=== PATIENT | male | born 1995 | race Caucasian/White ===

== ENCOUNTER 2019-05-01 10:23 | Emergency (ER) | payer SELFPAY ==
--- NOTE | 2019-05-01 10:54 | ER Document Report ---
ED Medical Screen (RME) - General Chief Complaint: Psych Problem Stated Complaint: numbness Time Seen by Provider: 05/01/19 10:42 TRAVEL OUTSIDE OF THE [place] IN LAST 30 DAYS: No - HPI Notes: 05/01/19 10:52 24-year-old male to the emergency department with complaints of numbness all over. He states that this is been ongoing since 2017. He states usually it happens in just his hands and around his mouth and his face. However last night he experienced it in his feet as well. He states that he sometimes will also have seizures when he gets numb like this. He states that he has not had 1 in the past 2 weeks. He states that he is never been evaluated for seizure-like activity. He denies chest pain, shortness of breath. Admits to occasional headaches and occasional diarrhea. He also states that he just recently moved here from [facility]. He states that he has been struggling with some depression. He states that he has fleeting and intermittent suicidal ideation without plan. He states he last had suicidal ideation about a week ago. He denies any HI. He admits to some vague hallucinations which he describes as dj vu. He has a history of ADD and used to be on a stimulant but is not on any current psychotropic medicines. He is to use marijuana but states he does not use any drugs currently and he does not drink alcohol. Performed a brief medical screening exam on the patient determined that he will need further evaluation and management by main side provider. I placed initial orders to help expedite his care. - Related Data Allergies/Adverse Reactions: No Known Allergies Allergy (Verified 05/01/19 10:42) Past Medical History - Social History Chew tobacco use (# tins/day): No Frequency of alcohol use: None Drug Abuse: None Physical Exam - Vital signs Vitals: Temp Pulse Resp BP Pulse Ox 98.0 F 70 14 115/74 100 05/01/19 10:05/01/19 10:05/01/19 10:05/01/19 10:05/01/19 10:26 Course - Vital Signs Vital signs: Temp Pulse Resp BP Pulse Ox 98.0 F 70 14 115/74 100 05/01/19 10:05/01/19 10:05/01/19 10:05/01/19 10:05/01/19 10:26
[2019-05-01 11:36] LABS: ABSOLUTE BASOPHILS # (AUTO) 0.1 10^3/uL (0.0-0.2); ABSOLUTE EOSINOPHILS # (AUTO) 0.2 10^3/uL (0.0-0.6); ABSOLUTE LYMPHOCYTES (AUTO) 0.9 10^3/uL (0.5-4.7); ABSOLUTE MONOCYTES (AUTO) 0.6 10^3/uL (0.1-1.4); ABSOLUTE NEUT (AUTO) 6.7 10^3/uL (1.7-8.2); BASOPHILS % (AUTO) 1.4 % (0-2); HEMOGLOBIN 15.6 g/dL (13.5-17.0); LYMPHOCYTES % (AUTO) 10.2 % (13-45); MEAN CORPUSCULAR HEMOGLOBIN 32.8 pg (27.0-33.4); MEAN CORPUSCULAR HGB CONC 35.5 g/dL (32.0-36.0); MEAN CORPUSCULAR VOLUME 93 fl (80-97); MONOCYTES % (AUTO) 6.6 % (3-13); PLATELET COUNT 256 10^3/uL (150-450); RED BLOOD COUNT 4.76 10^6/uL (4.35-5.55); RED CELL DISTRIBUTION WIDTH 12.3 % (11.5-14.0); SEGMENTED NEUTROPHILS % (AUTO) 79.8 % (42-78); TOTAL CELLS COUNTED % (AUTO) 100 %; WHITE BLOOD COUNT 8.4 10^3/uL (4.0-10.5)
[2019-05-01 11:38] LABS: APPEARANCE,URINE SLIGHTLY-CLOUDY; BILIRUBIN,URINE NEGATIVE (NEGATIVE); COLOR,URINE YELLOW; GLUCOSE, URINE NEGATIVE (NEGATIVE); KETONES,URINE NEGATIVE (NEGATIVE); LEUKOCYTE ESTERASE,URINE NEGATIVE (NEGATIVE); NITRITE,URINE NEGATIVE (NEGATIVE); PROTEIN,URINE NEGATIVE (NEGATIVE); URINE SPECIFIC GRAVITY 1.015; UROBILINOGEN,URINE NEGATIVE mg/dL (<2.0)
[2019-05-01 11:44] LABS: ALBUMIN 4.6 g/dL (3.5-5.0); ALKALINE PHOSPHATASE 63 U/L (38-126); ANION GAP 10 (5-19); ASPARTATE AMINO TRANSFERASE 29 U/L (17-59); BLOOD UREA NITROGEN 12 mg/dL (7-20); CARBON DIOXIDE 30 mmol/L (22-30); CHLORIDE 102 mmol/L (98-107); GLUCOSE 70 mg/dL (75-110); POTASSIUM 3.8 mmol/L (3.6-5.0); TOTAL PROTEIN 7.4 g/dL (6.3-8.2)
[2019-05-01 11:45] LABS: ALCOHOL < 10 mg/dL (NONE DETECTED)
[2019-05-01 11:51] LABS: URINE AMPHETAMINES SCREEN NEGATIVE; URINE BARBITURATES SCREEN NEGATIVE; URINE BENZODIAZEPINES SCREEN NEGATIVE; URINE COCAINE SCREEN NEGATIVE; URINE METHADONE SCREEN NEGATIVE; URINE PHENCYCLIDINE SCREEN NEGATIVE
[2019-05-01 11:53] LABS: URINE MARIJUANA (THC) SCREEN UNCONFIRMED POSITIVE
--- NOTE | 2019-05-01 13:18 | PSYCHOLOGICAL NOTE ---
Psych Note - Psych Note Date seen by psych provider: 05/01/19 Time seen by psych provider: 12:27 - Initial evaluation Psych Note: Presenting Problem: Patient presented to the ED today for self diagnosis of seizure disorder since 2016 with description of numb extremities, fleeting and intermittent SI, hallucinations described as Abbi Vu, new to [place] from [facility] (moved in Dec 2018 to live with from from [facility] who has since returned to [facility]), with history of ADHD/ADD. No information found on patient in [place] controlled substance data base. He identified stress related to roommates moved out so concerns with finances and making ends meet, as well as his father having heart surgery [facility] in [place]. He reported "I'm tired physically." He denied current SI. stated it comes and goes, no plan, he would never do anything and denied history of attempts. He denied being on current medications and stated he has a history of ADHD/ADD where he was prescribed something he cannot recall when he was in middle school. he stated "it helped a little bit at first, when I got off it I was angry so they put me back on it, then I couldn't tell any difference so stopped it." He denied previous hospitalizations. He acknowledged his mother has history of depression, anxiety, Bipolar and ADHD/ADD. He stated he has never been diagnosed with seizure disorder and has never had medication for it. He said he does not have insurance and is not linked to any providers (medical or ). he stated he was interested in medication recommendations and linkage. Patient had fair eye contact, carried on dialogue conversation and was engaged thus did not appear to be responding to internal stimuli. he stated when he is at home his overall body can be room temperature but his hands and feet are like icicles. This was relayed to the medical doctor. Diagnosis: Passive Suicidal Ideation Sleepy/Fatigue Psychosocial stress (roommates moved out, finances on own now, father having heart surgery today in [place]) Medication recommendation made by the psychiatric medication provider, Dr. Bouchra MD., includes: Provide prescription for Depakote ER 250MG PO twice a day for possible seizures/mood stabilization Impression/Plan: Patient is cleared from acute psychiatric services. He denied current SI/HI, said when he does have SI it comes and goes/no plan/would never do anything/denied previous attempts and had fair eye contact/engaged in evaluation with dialogue conversation therefor did not appear to be responding to internal stimuli. He identified psychosocial stress (roommates moved out, finances all on his own now, father having heart surgery today in [place]). he stated he was interest in medication recommendations and linkages to local providers. Patient provided outpatient MH resource sheet which highlighted both MCM numbers, Port and IFS with documented walk in times and listed [facility] for medical needs. Consulted with Dr. Guo regarding the management and care of patient. ED Physician in agreement with recommendations.
--- NOTE | 2019-05-01 14:24 | ER Document Report ---
ED Psych Disorder / Suicide <NIXON JUNIOR - Last Filed: 05/01/19 14:31> - General TRAVEL OUTSIDE OF THE U.S. IN LAST 30 DAYS: No <LAZARA JENNINGSHANJOE Miller - Last Filed: 05/03/19 10:46> - General Chief Complaint: Psych Problem Stated Complaint: numbness Time Seen by Provider: 05/01/19 10:42 Primary Care Provider: [facility] [Provider Group] - Follow up as needed [facility] [Outside] - Follow up as needed Notes: Patient is a 24-year-old male who presents to the emergency department with a chief complaint of arm numbness, face numbness, and numbness pretty much all over. Patient has had this problem for the past 3 years, but has never seen a primary care provider for this. Patient ended up feeling the same symptoms in his feet. Patient has a he states that he will sometimes have seizures. Patient has moved here to [place] from [place] this December. Patient admits to some depression. He admitted earlier to suicidal ideation, but denies homicidal Alexey ideation during my assessment. Patient denies homicidal ideation. Patient is not currently on any medications at this time. He has a history of ADHD. Patient admits to smoking marijuana in [place] a couple weeks ago. (BERNICE JENNINGS) - Related Data Allergies/Adverse Reactions: No Known Allergies Allergy (Verified 05/01/19 10:42) Past Medical History - General Information source: Patient - Social History Smoking Status: Never Smoker Chew tobacco use (# tins/day): No Frequency of alcohol use: None Drug Abuse: None Family History: Reviewed & Not Pertinent Patient has suicidal ideation: No Patient has homicidal ideation: No Psychiatric Medical History: Reports: Hx Attention Deficit Hyperactivity Disorder <BERNICE JENNINGS - Last Filed: 05/03/19 10:46> Review of Systems <BERNICE JENNINGS - Last Filed: 05/03/19 10:46> - Review of Systems Notes: REVIEW OF SYSTEMS: CONSTITUTIONAL : Denies recent illness. Denies recent unintentional weight loss. Denies fever, chills, or sweats. EENT: Denies eye, ear, throat, or mouth pain, discharge, or symptoms. See HPI. CARDIOVASCULAR: Denies chest pain. RESPIRATORY: Denies shortness of breath, cough, congestion, difficulty breathing, or wheezing. GASTROINTESTINAL: Denies nausea, vomiting, and diarrhea. Denies abdominal pain. Denies constipation. GENITOURINARY: Denies difficulty urinating, burning, blood in urine, urgency or frequency. MUSCULOSKELETAL: Denies neck and back pain. Denies joint pain or swelling. SKIN: Denies rash, itchiness, or lesions HEMATOLOGIC : Denies easy bruising or bleeding. LYMPHATIC: Denies swollen, painful, enlarged glands. NEUROLOGICAL: Denies no numbness or tingling denies weakness. Denies headache. Denies altered mental status. Denies alteration in speech. PSYCHIATRIC: See HPI. All other systems reviewed and negative. (BERNICE JENNINGS) Physical Exam <BERNICE JENNINGS - Last Filed: 05/03/19 10:46> - Vital signs Vitals: Temp Pulse Resp BP Pulse Ox 98.0 F 70 14 115/74 100 05/01/19 10:26 05/01/19 10:26 05/01/19 10:26 05/01/19 10:26 05/01/19 10:26 - Notes Notes: PHYSICAL EXAMINATION: GENERAL: Appears well, healthy, well-nourished, no acute distress. HEAD: Normocephalic, atraumatic. EYES: PERRL, conjunctiva normal, all extraocular movements intact, sclera nonicteric ENT: Moist mucous membranes. Edema and erythema noted to nasal mucosa. NECK: Supple, no noticeable swelling, redness, rash. Normal range of motion. LUNGS: Equal breath sounds bilaterally and clear to auscultation. No wheezes rales or rhonchi. CARDIOVASCULAR: S1-S2, regular rate, regular rhythm. Radial pulses 2+, normal. ABDOMEN: Normoactive bowel sounds. Soft, nontender, no guarding, no rebound tenderness, and no masses palpated. EXTREMITIES: Normal strength and range of motion, no pitting or edema. No cyanosis. NEUROLOGICAL: Moves all extremities upon command. Strength 5/5 in all extremities. PSYCH: Normal mood, normal affect. SKIN: Warm, dry. No rash, lesions, ulcerations noted. Normal skin turgor. (BERNICE JENNINGS) Course - Laboratory Result Diagrams: 05/01/19 11:00 05/01/19 11:00 <NIXON JUNIOR - Last Filed: 05/01/19 14:31> - Laboratory Result Diagrams: 05/01/19 11:00 05/01/19 11:00 <BERNICE JENNINGS - Last Filed: 05/03/19 10:46> - Re-evaluation Re-evalutation: 05/01/19 14:54 Hematology does not show leukocytosis, but there is a left shift. Chemistries show glucose of 70, but the patient was fed and eating well. Urinalysis is unremarkable. Urine toxicology shows marijuana. Serum alcohol is negative. Mental [facility] has evaluated the patient and the patient will be placed on Depakote 250 mg p.o. twice daily. Patient also states that he has a runny nose that started yesterday. He will be started on cetirizine and Flonase. He will follow-up with [facility]. He will also follow-up with the mental health clinic. Patient denies any suicidal or homicidal ideation. He is medically clear and psychologically cleared for home. Follow-up precautions were given. Verbal discharge instructions were given to the patient. They verbalized understanding. They are stable for discharge. (BERNICE JENNINGS) - Vital Signs Vital signs: Temp Pulse Resp BP Pulse Ox 97.8 F 81 15 106/53 L 100 05/01/19 15:28 05/01/19 15:28 05/01/19 15:28 05/01/19 15:28 05/01/19 15:28 - Laboratory Laboratory results interpreted by me: 05/01/19 05/01/19 05/01/19 11:00 11:00 11:00 Lymph % (Auto) 10.2 L Seg Neutrophils % 79.8 H Glucose 70 L Urine Ascorbic Acid 40 H Discharge <NIXON JUNIOR - Last Filed: 05/01/19 14:31> <BERNICE JENNINGS - Last Filed: 05/03/19 10:46> - Discharge Clinical Impression: Rhinorrhea, Suicidal ideation Depression Qualifiers: Depression Type: unspecified Qualified Code(s): F32.9 - Major depressive disorder, single episode, unspecified Condition: Stable Disposition: HOME, SELF-CARE Additional Instructions: Please start cetirizine and Flonase to help with your runny nose and congestion. Follow up with [facility] as needed for regular care. You have been evaluated by both medical and behavioral health teams for passive suicidal ideation and have been deemed appropriate for discharge. Medication recommendations have been provided. You have been prescribed Depakote ER 250MG to be taken twice a day. While in the emergency department you received the following services: Medical screening and assessment, nursing services, dietary services, pharmacological services, one-on-one counseling and/or psychotherapy, and environmental services. You have been provided with a outpatient mental health resource list which includes highlighted information for Port and/or IFS. You have also been provided with the [employer] application. You are encouraged to select a mental health provider for medication management and mental health services. The contact information for mobile crisis has been provided, as needed. SUICIDAL IDEATION: Suicidal ideation is a common medical term for thoughts about suicide, which may be as detailed as a formulated plan, without the suicidal act itself. Although most people who undergo suicidal ideation do not commit suicide, some go on to make suicide attempts. The range of suicidal ideation varies greatly from fleeting to detailed planning, role playing, and unsuccessful attempts. While thoughts about suicide are common, most people do not carry out serious actions to commit suicide. Based upon your evaluation and discussion with you, we do not believe you are currently at risk to act upon your thoughts of suicide. You have agreed to return to the Emergency Department, at any time, if you feel inclined to act upon your suicidal thoughts. AT ANY TIME, IF YOUR SYMPTOMS CHANGE SIGNIFICANTLY OR WORSEN OR YOU DEVELOP NEW SYMPTOMS, RETURN TO THE EMERGENCY DEPARTMENT IMMEDIATELY FOR RE-EVALUATION. Prescriptions: Cetirizine HCl [All Day Allergy] 10 mg PO DAILY #30 tablet Divalproex Sodium [Depakote Er 250 Mg Tablet] 250 mg PO BID #28 tab.sr.[id number] Fluticasone Propionate [Flonase Nasal [place] 50 Mcg/[place] 16 gm] 2 sprays NASL DAILY #1 inhaler Referrals: [facility] [Outside] - Follow up as needed [facility] [Provider Group] - Follow up as needed
[2019-05-01 15:30] VITALS: BP 106/53
--- NOTE | 2019-05-01 23:40 | EKG REPORT ---
SEVERITY:- NORMAL ECG - SINUS RHYTHM : Confirmed by: Leni Escobar 01-May-2019 23:38:50
== END 2019-05-01 15:28 | disposition home or self-care (01) ==
LOC: ER 10:23
DX: R45.851 Suicidal ideations (principal); F32.9 Major depressive disorder, single episode, unspecified; J34.89 Other specified disorders of nose and nasal sinuses; R20.0 Anesthesia of skin; F12.90 Cannabis use, unspecified, uncomplicated
CPT/HCPCS: 36415; 80053; 80307; 81001; 85025; 93005; 93010; 99285